=== PATIENT | male | born 1955 | race Caucasian/White ===

== ENCOUNTER → 2021-06-13 | Outpatient (CLI) | payer OTHER, BC ==
--- NOTE | 2021-06-14 15:08 | PATH ---
[facility] [place] [address] PATHOLOGY RPT PROCEDURE Name: CARRILLO MARTINEZRAFAELDanyelle Room #: REG MAXIMILIANO Carmichael#: [id number] Admission: 06/13/21 Date of : 51 Discharge: Report #: [id number] Path Case #: [id number] [facility] Accession Number: [id number] . 01 Material submitted: . PART A: duodenum - DUODENAL BIOPSY PART B: gastrointestinal site - GASTRIC BIOPSY . 01 Clinical history: . DYSPEPSIA GASTRITIS . 02 Diagnosis: A. Duodenum, biopsy: - Small bowel mucosa with preserved villous architecture. - Negative for celiac disease, peptic duodenitis, giardiasis or malignancy. . B. Gastric, endoscopic biopsy: - Gastric antral mucosa with [id number] chronic active gastritis. - An H. pylori immunohistochemical stain is positive for H. pylori-like organisms. . (ANK:monico; 06/14/2021) [facility] 06/14/2021 1129 Local . 02 Electronically signed: . Becky Moe MD, Pathologist NPI- [id number] . 01 Gross description: . A. The specimen is submitted in formalin, labeled "Carrillo Martinez, duodenal biopsy". Received are 4 segments of pale rose tissue ranging in size from 0.3 to 0.4 cm in maximum dimensions. The specimen is submitted entirely in cassette A1. . B. The specimen is submitted in formalin, labeled "Denisse Martinezl, gastric biopsy". Received are 4 segments of pale rose tissue ranging in size from 0.3 to 0.5 cm in maximum dimensions. The specimen is submitted entirely in cassette B1. ([facility]; 06/13/2021) NRI/NRI 06/14/2021 1125 Local . 02 Pathologist provided ICD-10: K29.50, B96.81, K30 . 02 CPT . [place] [id number] PATHOLOGY RPT PROCEDURE Name: CARRILLO MARTINEZ [facility] Room #: REG [facility]#: [id number] Admission: 06/13/21 Date of : 51 Discharge: Report #: [id number] Path Case #: [id number] Specimen Comment: A courtesy copy of this report has been sent to [phone] Specimen Comment: [phone] Specimen Comment: Report sent to / DR WALTERS Performed at: [address], [place], [place] [id number] MD Barry Nolan MD Phone: [phone] Performed at: [address] [id number] MD Aliza Hernandez MD Phone: [phone]
== END | disposition home or self-care (01) ==
LOC: GI 08:31
PROVIDERS: ATTEND Internal Medicine
DX: R13.10 Dysphagia, unspecified (principal); R10.13 Epigastric pain; K29.50 Unspecified chronic gastritis without bleeding; B96.81 Helicobacter pylori [H. pylori] as the cause of diseases classified elsewhere; K26.9 Duodenal ulcer, unspecified as acute or chronic, without hemorrhage or perforation; E78.00 Pure hypercholesterolemia, unspecified; E11.9 Type 2 diabetes mellitus without complications; Z20.822 Contact with and (suspected) exposure to COVID-19; Z98.890 Other specified postprocedural states; Z79.899 Other long term (current) drug therapy
CPT/HCPCS: 62110; 62900